=== PATIENT | male | born 1985 | race Caucasian/White ===

== ENCOUNTER 2018-08-14 12:27 | Emergency (ER) | payer OTHER ==
[~2018-08-14] VITALS: Ht 170.2 cm; Wt 72.6 kg
[2018-08-14 13:11] LABS: ABSOLUTE NEUTROPHILS 11.4 thou/uL (1.4-8.2); BASOPHILS 0.5 % (0.0-2.0); EOSINOPHILS 0.8 % (0.0-3.0); HEMATOCRIT 45.8 % (42.0-52.0); HEMOGLOBIN 15.4 gm/dL (14.0-18.0); LYMPHOCYTES 21.9 % (24.0-44.0); MCH 28.5 pg (26.0-34.0); MCHC 33.6 g/dL (28.0-37.0); MCV 84.9 fL (80.0-100.0); MONOCYTES 4.2 % (1.0-8.0); PLATELET COUNT 183 thou/uL (150-400); POLYS 72.6 % (36.0-66.0); WBC 15.7 thou/uL (4.0-11.0)
[2018-08-14 13:20] LABS: CALCIUM 9.6 mg/dL (8.5-10.1); CREATININE 0.9 mg/dL (0.7-1.3)
[2018-08-14 13:28] LABS: TOTAL BILIRUBIN 0.4 mg/dL (<0.1-1.0)
[2018-08-14 15:35] VITALS: BP 122/71
== END 2018-08-14 15:35 | disposition home or self-care (01) ==
LOC: ER 12:27
PROVIDERS: Student in an Organized Health Care Education/Training Program
DX: S63.296A Dislocation of distal interphalangeal joint of right little finger, initial encounter (principal); F17.210 Nicotine dependence, cigarettes, uncomplicated; W11.XXXA Fall on and from ladder, initial encounter; Y93.89 Activity, other specified; Y92.89 Other specified places as the place of occurrence of the external cause; Y99.8 Other external cause status